=== PATIENT | female | born 1955 | race Caucasian/White ===

== ENCOUNTER 2016-07-08 19:14 | Inpatient (IN) | payer BC, SELFPAY ==
[~2016-07-08] VITALS: Ht 165.1 cm; Wt 84.8 kg
[2016-07-08] MEDS: CETIRIZINE (ZyrTEC) 10 MG TAB PO SCH (02:00)
[2016-07-08] MEDS ORDERED: MELO15TA4 PO (20:06)
[2016-07-08] MEDS ORDERED: ALLE10TA PO (20:06)
[2016-07-08] MEDS ORDERED: MUCI600T34 PO (20:06)
[2016-07-08] MEDS ORDERED: LEVO112T2 PO (20:06)
[2016-07-08] MEDS ORDERED: BISO10TA3 PO (20:06)
[2016-07-08] MEDS ORDERED: RANI1TAB6 PO (20:06)
[2016-07-08] MEDS ORDERED: AZOR5TAB4 PO (20:06)
[2016-07-08] MEDS ORDERED: METH2.5TA PO (20:06)
[2016-07-08] MEDS ORDERED: MORPHINE 4 MG/ML 1ML SYRINGE IV ONE (20:45)
[2016-07-08] MEDS ORDERED: ONDANSETRON 4MG/2ML VIAL (J2405) As Ordered ONE (20:50)
[2016-07-08] MEDS ORDERED: ONDANSETRON 4MG/2ML VIAL (J2405) IV ONE (21:00)
[2016-07-08] MEDS ORDERED: CETI10TA PO (21:58)
[2016-07-08 22:00] LABS: MEAN CORPUSCULAR HEMOGLOBIN 32.2 pg (27.0-33.0); MEAN CORPUSCULAR VOLUME 94.7 fl (80.0-96.0); RED CELL DISTRIBUTION WIDTH 13.6 % (11.5-14.5); WHITE BLOOD COUNT 10.3 K/mm3 (4.0-10.0)
[2016-07-08] MEDS ORDERED: ARTI99.0 OU (22:01)
[2016-07-08] MEDS ORDERED: FOLI1TAB2 PO (22:01)
[2016-07-08 22:26] LABS: ANION GAP 7 MEQ/L (8-16); BLOOD UREA NITROGEN 14 MG/DL (7-18); CALCIUM LEVEL 8.7 MG/DL (8.8-10.2); CARBON DIOXIDE LEVEL 27 MEQ/L (21-32); CHLORIDE LEVEL 96 MEQ/L (98-107); CREATININE FOR GFR 0.69 MG/DL (0.55-1.02); GLOMERULAR FILTRATION RATE > 60.0 (>45); GLUCOSE, FASTING 141 MG/DL (80-110); POTASSIUM SERUM 4.1 MEQ/L (3.5-5.1); SODIUM LEVEL 130 MEQ/L (136-145)
[2016-07-08] MEDS ORDERED: amLODIPine 5 MG TAB PO ONE (23:15)
[2016-07-08] MEDS ORDERED: cloNIDine 0.2 MG TAB PO ONE (23:15)
[2016-07-08] MEDS ORDERED: guaiFENesin ER 600 MG TAB PO PRN (23:30)
[2016-07-08] MEDS ORDERED: PROMETHAZINE INJ 25 MG/ML VIAL (J2550) IV ONE (23:30)
--- NOTE | 2016-07-09 00:30 | CR.PDOC ---
[facility] Consultation Consultation DATE OF CONSULTATION: July 08, 2016 at 20:28 PRIMARY CARE PHYSICIAN: [place] REFERRING PROVIDER: Dr. Abel ATTENDING PHYSICIAN: Dr. Lopez REASON FOR CONSULTATION/CHIEF COMPLAINT: Management of medical problems HISTORY OF PRESENT ILLNESS: Ms. Lundberg is a 61-year-old female who presents to [facility] emergency Department with right leg pain. Patient is a resident of [place], but is visiting her son who is in the . She was making chocolate chip cookies with her granddaughter when she was walking back from the refrigerator and slipped. Her right leg went out from under her and she fell to the ground. Denies hitting her head or loss of consciousness. Denies tongue maceration. Had one episode of nonbloody diarrhea. No urinary incontinence. Admits to nausea. Has had 4 episodes of nonbloody emesis. Admits to some diaphoresis and non-teeth rattling chills. Admits to tinnitus and left ankle swelling. Also admits to vague, diffuse abdominal pain. Besides positive review of systems listed above all other review of systems are negative. Hospitalist service was consulted to manage medical problems. Primary attending is orthopedics. Hospitalist independent marketing consultant will be Dr. Moran. ALLERGIES: Please see below. HOME MEDICATIONS: Please see below. PAST MEDICAL HISTORY: 1. Hypothyroidism. 2. Resistant hypertension. 3. Rheumatoid arthritis. 4. Allergies. 5. Cataracts. PAST SURGICAL HISTORY: 1. Colonoscopy. 2. Upper endoscopy. 3. Tubal ligation. 4. Uterine laparoscopy for a lysis of adhesions. 5. Left wrist surgery. FAMILY HISTORY: Father: in 2002, multiple sclerosis Mother: Alive, 80 years old, history of aortic aneurysm Siblings: Brother - diabetes SOCIAL HISTORY: Marital status and/or living arrangements: , lives with , mother, and mentally retarded son Tobacco use: Denies ETOH: Denies Illicit drug use: Denies IV drug use: Denies Other relevant social factors: Domestic travel only, denies environmental exposures REVIEW OF SYSTEMS: CONSTITUTIONAL: Admits to chills; denies fever, night sweats. HEENT: Admits to tinnitus; denies headache, blurry vision, diplopia, vision loss. CARDIOVASCULAR: Denies chest pain. RESPIRATORY: Admits to diaphoresis; denies orthopnea, PND, shortness of breath. GENITOURINARY: Denies urinary frequency, urinary urgency, dysuria, hematuria. MUSCULOSKELETAL: Admits to chronic joint pain secondary to rheumatoid arthritis. GASTROINTESTINAL: Admits to nausea, vomiting, abdominal pain. SKIN: Denies skin rashes, lesions. NEUROLOGICAL: Denies numbness, tingling. HEMATOLOGIC/LYMPHATIC: Denies abnormal bleeding, bruising. ALLERGIC/IMMUNOLOGIC: Admits to allergies seasonal. PHYSICAL EXAMINATION: VITAL SIGNS: Please see below. GENERAL APPEARANCE: Well-nourished, well-developed female who appears stated age and in no apparent distress. HEENT: Atraumatic, normocephalic, PERRL, EOMI, oral mucosa appears slightly dry , nasal septum appears midline, nasal cannula in place, nares are patent. RESPIRATORY: Clear to auscultation bilaterally, adequate inspiratory and expiratory airway excursion, no wheeze, rhonchi, crackles. CARDIOVASCULAR: Regular rate and rhythm, normal S1 and S2, no murmur, rub, click appreciated. ABDOMEN: Round, soft, mildly tender to palpation, diminished bowel sounds appreciated. EXTREMITIES: Peripheral pulses appreciated bilaterally in upper and lower extremities symmetrical, +2/4, no edema appreciated. NEUROLOGICAL: Cranial nerves II through XII appear grossly intact. PSYCHIATRIC: Mood and affect appear appropriate. LABORATORY DATA: Please see below. ASSESSMENT/PLAN: 1. Preoperative optimization: Blood pressure will be optimized with hydralazine , Norvasc, and clonidine. No cardiac history. METS 4+. EKG shows normal sinus rhythm with T-wave abnormalities in V1-3. Prior EKG on 02/25/2010 does not show T-wave abnormalities. Obtaining cardiac marker. Patient is asymptomatic. TEDs and sequentials for DVT prophylaxis. Medically optimized and may proceed to surgery. 2. Hypertension: Started Norvasc, clonidine, and hydralazine to optimize patient 's blood pressure. Status post orthopedic surgery could consider resuming patient's home blood pressure medication. 3. Hyponatremia: Likely secondary to patient's home blood pressure medication. Monitor with daily BMP. Obtaining serum and urine osmolality and random urine sodium. 4. Hypothyroidism: Continue patient's home medication of Synthroid. 5. Rheumatoid arthritis: Patient has not been on prednisone for at least a year. Patient reports that her methotrexate is only taken on Wednesday and Humira on Wednesday. Could consider resuming at that time. 6. Allergies: Continue home medication regimen. 7. Tibial fracture: Primary care teams orthopedics. Defer antibiotic preference to orthopedics at this time. Vital Signs/I&O Vital Signs Date Time Temp Pulse Resp B/P (MAP) Pulse Ox O2 Delivery O2 Flow Rate FiO2 07/08/16 22:41 97.0 60 18 187/90 (122) 100 Nasal Cannula 2.0 Laboratory Data Labs 24H Laboratory Tests 2 07/08/16 21:31: Anion Gap 7L, Glomerular Filtration Rate > 60.0, Blood Urea Nitrogen 14, Creatinine 0.69, Sodium Level 130L, Potassium Level 4.1, Chloride Level 96L, Carbon Dioxide Level 27, Calcium Level 8.7L, Thyroid Stimulating Hormone (TSH) 0.864 CBC/BMP Laboratory Tests 07/08/16 21:31 Calcium Level 8.7 L 07/08/16 21:32 Red Blood Count 3.84 L, Mean Corpuscular Volume 94.7, Mean Corpuscular Hemoglobin 32.2, Mean Corpuscular Hemoglobin Concent 34.0, Red Cell Distribution Width 13.6 Allergies Coded Allergies: Nitrofurantoin (Verified Allergy, Unknown, 07/08/16) Penicillins (Verified Allergy, Unknown, 07/08/16) Sulfa Antibiotics (Verified Allergy, Unknown, 07/08/16) Home Medications Scheduled (Gus 5-40 mg) 1 Tab Tab, 1 TAB PO QPM, (Reported) (Bisoprolol Fumarate/[place] 10-6.25 mg) 1 Tab Tab, 1 TAB PO DAILY, (Reported) Artificial Tears (Artificial Tears) 1.4 % Sepideh, 0 OU DAILY, (Reported) Cetirizine HCl (Cetirizine HCl) 10 Mg Tab, 10 MG PO QPM, (Reported) Folic Acid (Folic Acid) 1 Mg Tab, 1 MG PO DAILY, (Reported) Levothyroxine Sodium (Synthroid) 112 Mcg Tab, 112 MCG PO QAM, (Reported) Meloxicam (Meloxicam) 15 Mg Tab, 15 MG PO QPM, (Reported) Methotrexate (Methotrexate) 2.5 Mg Tab, 7.5 MG PO ASDIRECTED, (Reported) Weekly on Wednesday - Takes 6 tabs (2.5 mg) Ranitidine HCl (Ranitidine [address]) 150 Mg Tab, 1 TAB PO DAILY, (Reported ) Scheduled PRN Guaifenesin (Mucinex) 600 Mg Tab, 600 MG PO BID PRN for CONGESTION, (Reported) ISABEL GORMAN July 09, 2016 00:28 JEFFRY LOPEZ MD July 10, 2016 01:01
--- NOTE | 2016-07-09 00:38 | HPE ---
DATE OF ADMISSION: 07/08/2016 CHIEF COMPLAINT: Right ankle pain and deformity. HISTORY OF PRESENT ILLNESS: Patient was visiting her son in the area. She is originally from [facility]. Slipped and fell in the kitchen this evening shortly after eating dinner. Presented promptly to the emergency room complaining of pain and deformity isolated to the right distal leg and ankle. No other complaints. PAST MEDICAL HISTORY: Significant for: 1. Rheumatoid arthritis. 2. Hypertension. 3. Thyroid disease. PAST SURGICAL HISTORY: 1. Tubal ligation. 2. Left wrist. ALLERGIES: PENICILLIN, SULFA, and MACRODANTIN. SOCIAL HISTORY: Denies tobacco use. Denies drug or alcohol abuse. REVIEW OF SYSTEMS: No recent fevers, chills, chest pain, or shortness of breath. PHYSICAL EXAMINATION: Awake, alert, and oriented times three. Well-appearing female in no acute distress. Properly dressed. Well nourished. Head is Normocephalic, atraumatic. Extraocular muscles are intact. CARDIOVASCULAR: Regular rate and rhythm. PULMONARY: No increased work of breathing. ABDOMEN: Soft, nontender nondistended. Focused examination of her right lower extremity reveals a swelling and deformity centered at the distal one-third of the right leg with the local skin intact. The swelling is not excessive. There is no sign of a compartment syndrome. Distally she has 2+ dorsalis pedis and posterior tibialis pulse. The toes are pink, warm, well perfused with full intact sensation to light touch and less than 2 seconds capillary refill. She has intact extensor hallucis longus, flexor hallucis longus, tibialis anterior function. Ipsilateral knee and thighs grossly normal, and the foot on the right side is also grossly normal. X-rays of the right leg and the right ankle show displaced fracture of the distal one-third of the tibia with an associated fibula fracture as well. ASSESSMENT: Right distal tibia and fibular fracture, as above. PLAN: She was placed in a well-padded L-induced splint. Post splinting x-rays were reviewed. She will be admitted for pain control, monitoring. Nothing by mouth past midnight, elevating the right lower extremity, and monitoring on neurovascular status and monitoring for any sign of compartment syndrome. Additionally, I will have the internal medicine staff evaluate the patient for preoperative clearance. I have discussed with her the treatment options for this injury, which would include, more than likely, going forward with intramedullary nailing of the right leg tomorrow. All of her questions were answered, and she did sign the surgical consent in my presence. She is satisfied with the treatment plan at this time. She is much more comfortable in the splint.
[2016-07-09 00:52] LABS: OSMOLALITY URINE 501 MOSM/KG (500-800)
[2016-07-09 01:11] LABS: OSMOLALITY SERUM 278 MOSM/KG (280-301)
[2016-07-09] MEDS: **hydrALAZINE** 10 MG TAB PO SCH ×6 (02:00→20:00)
[2016-07-09 02:06] VITALS: BP 133/97
[2016-07-09] MEDS: LEVOTHYROXINE 0.112 MG TAB (112 MCG) PO SCH (05:23)
[2016-07-09 06:00] VITALS: BP 101/56
--- NOTE | 2016-07-09 06:23 | ECGEPIP ---
Stationary ECG Study [facility] Test Date: 2016-07-08 Pat Name: VIPUL HORNE Department: Room: - Gender: F Street Sweeper: ZEKE : 1955 Requested By: JEFFRY Sullivan Order Number: [id number] Reading MD: Evelin Peterson Measurements Intervals Mcroberts Rate: 62 P: 42 DE: 181 QRS: 18 QRSD: 102 T: 32 QT: 431 QTc: 438 Interpretive Statements SINUS RHYTHM ST DEVIATION AND MODERATE T-WAVE ABNORMALITY, CONSIDER ANTERIOR ISCHEMIA no prior Electronically Signed On 07-09-2016 6:23:01 EDT by Evelin Peterson
--- NOTE | 2016-07-09 07:31 | CR ---
DATE OF CONSULTATION: 07/08/2016 This is an addendum to consultation report #[id number] dictated by ULYSSES Zuniga. Please refer to that report. ADDENDUM: Preop medical clearance. The patient has no prior history of coronary artery disease, OR or congestive heart failure (CHF). She currently is in her usual state of health and is currently medically optimized. Blood pressure is improved from admission and is stable to proceed to surgery. MEGHAN
--- NOTE | 2016-07-09 07:40 | REP ---
Clinical: Trauma. Technique: AP and cross-table lateral views of the right tibia / fibula. Findings: Moderate arthritic degenerative changes at the knee. Comminuted oblique fractures of the distal tibial and fibular diaphysis noted. No subcutaneous emphysema or radiodense foreign body. Impression: Comminuted oblique fractures of the distal tibia and fibular diaphysis. Signed by Efra Albright MD 07/09/2016 07:32 A
--- NOTE | 2016-07-09 07:40 | REP ---
Clinical: Trauma. Technique: AP, lateral, bilateral oblique views of the right ankle. Findings: There is oblique minimally displaced fractures involving the distal tibial and fibular diaphyses. Overlying soft tissue swelling noted. No subcutaneous emphysema or radiodense foreign body. Moderate arthritic degenerative changes to the ankle and visualized midfoot. Impression: Oblique fractures of the distal tibial and fibular diaphyses. Signed by Efra Albright MD 07/09/2016 07:32 A
[2016-07-09] MEDS: amLODIPine 10 MG TAB PO SCH (08:20)
--- NOTE | 2016-07-09 08:39 | REP ---
Clinical: Preoperative assessment . Comparison: 03/07/2012 . Findings: The mediastinum and cardiac silhouette are stable and within normal limits for portable technique. The lung rubi are clear without acute consolidation, effusion, or pneumothorax. Skeletal structures are intact. Impression: Normal portable chest x-ray Signed by Efra Albright MD 07/09/2016 08:29 A
[2016-07-09] MEDS: POLYVINYL ALCOHOL OPHTH SOLN 15 ML(LIQUITEARS) OU SCH (09:00)
[2016-07-09] MEDS ORDERED: LEVOTHYROXINE 0.112 MG TAB (112 MCG) PO SCH (09:00)
[2016-07-09] MEDS: FOLIC ACID 1 MG TAB PO SCH (09:00)
[2016-07-09] MEDS: ONDANSETRON 4MG/2ML VIAL (J2405) IV PRN ×2 (10:55→17:32)
[2016-07-09] MEDS ORDERED: CLINDAMYCIN INJ 900MG/6ML VIAL As Ordered ONE (15:33)
--- NOTE | 2016-07-09 17:49 | IPNPDOC ---
Date Seen The patient was seen on 07/09/16. Progress Note CHIEF COMPLAINT: Right leg injury. HISTORY OF PRESENT ILLNESS: Patient is a 61 y/o female with rheumatoid arthritis who sustained a mechanical fall from standing height yesterday afternoon. Patient was visiting her son in the area. She is originally from [facility]. Presented promptly to the emergency room complaining of pain and deformity isolated to the right distal leg and ankle. No other complaints. PAST MEDICAL HISTORY: Significant for: 1. Rheumatoid arthritis. 2. Hypertension. 3. Thyroid disease. Medications: Humira, Methotrexate PAST SURGICAL HISTORY: 1. Tubal ligation. 2. Left wrist surgery. ALLERGIES: PENICILLIN, SULFA, and MACRODANTIN. SOCIAL HISTORY: Denies tobacco use. Denies drug or alcohol abuse. Lives in [place]. Here visiting her son. REVIEW OF SYSTEMS: No recent fevers, chills, chest pain, or shortness of breath. PHYSICAL EXAMINATION: Awake, alert, and oriented times three. Well-appearing female in no acute distress. Properly dressed. Well nourished. Head is Normocephalic, atraumatic. Extraocular muscles are intact. CARDIOVASCULAR: Regular rate and rhythm. PULMONARY: No increased work of breathing. ABDOMEN: Soft, nontender nondistended. Focused examination of her right lower extremity reveals a swelling and deformity centered at the distal one-third of the right leg with the local skin intact. No pain with passive stretch of the toes. There is no sign of compartment syndrome. Distally she has 2+ dorsalis pedis and posterior tibialis pulse. The toes are pink, warm, well perfused with full intact sensation to light touch and less than 2 seconds capillary refill. She has intact extensor hallucis longus, flexor hallucis longus, tibialis anterior function. Ipsilateral knee and thighs grossly normal, and the foot on the right side is also grossly normal. X-rays of the right leg and the right ankle show displaced fracture of the distal one-third of the tibia with an associated fibula fracture as well. ASSESSMENT: Right distal tibia and fibular fracture, as above. PLAN: She was placed in a well-padded L and U splint last night. She has been comfortable overnight. I counseled the patient on the risks, benefits, indications, and alternatives of operative and nonoperative treatment for her fracture and recommend closed versus open reduction and IM nail fixation. We discussed the potential increased risk for infection given her immunosupressive therapy. We discussed the risk for compartment syndrome. I also counseled the patient that I will be her operating surgeon but her follow up will be arranged and managed by the [facility] for as long as she remains in the area. Patient has expressed understanding and informed consent was obtained. She plans to remain in the area through the majority of her recovery period. All patient questions were answered. VS, I&O, 24H, Fishbone Vital Signs/I&O Vital Signs Date Time Temp Pulse Resp B/P (MAP) Pulse Ox O2 Delivery O2 Flow Rate FiO2 07/09/16 17:29 20 07/09/16 17:29 174/79 07/09/16 06:00 97.4 54 95 Room Air 07/09/16 00:07 2.0 I&O- Last 24 Hours up to 6 AM 07/09/16 06:00 Intake Total 0 ml Output Total 300 ml Balance -300 ml Laboratory Data 24H LABS Laboratory Tests 2 07/08/16 21:31: Anion Gap 7L, Glomerular Filtration Rate > 60.0, Blood Urea Nitrogen 14, Creatinine 0.69, Sodium Level 130L, Potassium Level 4.1, Chloride Level 96L, Carbon Dioxide Level 27, Calcium Level 8.7L, Thyroid Stimulating Hormone (TSH) 0.864 07/09/16 00:15: Urine Random Osmolality 501, Urine Random Sodium 153 07/09/16 00:33: Osmolality 278L, Total Creatine Kinase 244H, Creatine Kinase MB 3.0, Creatine Kinase MB Relative Index 1.22, Troponin I < 0.02 CBC/BMP Laboratory Tests 07/08/16 21:31 Calcium Level 8.7 L 07/08/16 21:32 Red Blood Count 3.84 L, Mean Corpuscular Volume 94.7, Mean Corpuscular Hemoglobin 32.2, Mean Corpuscular Hemoglobin Concent 34.0, Red Cell Distribution Width 13.6 DARYL REBOLLAR MD July 09, 2016 17:49
[2016-07-09] MEDS ORDERED: CLINDAMYCIN 900 MG/50 ML PREMIX BAG As Ordered ONE (19:00)
[2016-07-09] MEDS ORDERED: dexameTHASONE 4 MG/ML 1ML VIAL (J1100) As Ordered ONE (19:38)
[2016-07-09] MEDS ORDERED: MIDAZOLAM INJ 2 MG/2 ML VIAL (J2250) As Ordered ONE (19:38)
[2016-07-09] MEDS ORDERED: fentaNYL 100 MCG/2 ML INJECTION (J3010) As Ordered ONE (19:38)
[2016-07-09] MEDS ORDERED: HYDROmorphone HCL 2 MG/ML 1ML VIAL (J1170) As Ordered ONE (19:38)
[2016-07-09] MEDS ORDERED: PROPOFOL 200 MG/20 ML VIAL As Ordered ONE (19:38)
[2016-07-09] MEDS ORDERED: ONDANSETRON 4MG/2ML VIAL (J2405) As Ordered ONE ×2 (19:38→22:02)
[2016-07-09] MEDS ORDERED: LIDOCAINE 2% INJ 100 MG/5 ML SDV (FOR ANES.) As Ordered ONE (19:38)
[2016-07-09] MEDS ORDERED: BUPIVACAINE HCL 0.25% 30 ML VIAL As Ordered ONE (21:15)
[2016-07-09] MEDS ORDERED: PERCOCET 5MG/325MG TAB PO PRN (22:00)
[2016-07-09] MEDS ORDERED: HYDROmorphone HCL 1 MG/ML SYRINGE (J1170) IV PRN (22:00)
[2016-07-09] MEDS ORDERED: fentaNYL 100 MCG/2 ML INJECTION (J3010) IV PRN (22:00)
[2016-07-09] MEDS ORDERED: LR 1,000 ML IV SCH (22:00)
[2016-07-09] MEDS ORDERED: ONDANSETRON 4MG/2ML VIAL (J2405) IV PRN (22:00)
[2016-07-09] MEDS ORDERED: PERCOCET 5MG/325MG TAB As Ordered ONE (22:02)
[2016-07-09 22:45] VITALS: BP 184/86
[2016-07-09 23:15] VITALS: BP 159/74
[2016-07-10] VITALS (10 sets, daily range): BP systolic 132–174; BP diastolic 65–88
[2016-07-10] MEDS: CETIRIZINE (ZyrTEC) 10 MG TAB PO SCH (01:01)
[2016-07-10] MEDS: CLINDAMYCIN 600 MG in APPROPRIATE DILUENT 1 EA IV SCH ×3 (01:01→13:10)
[2016-07-10] MEDS: **hydrALAZINE** 10 MG TAB PO SCH ×4 (01:02→11:57)
[2016-07-10] MEDS: LEVOTHYROXINE 0.112 MG TAB (112 MCG) PO SCH (05:23)
[2016-07-10] MEDS: ONDANSETRON 4MG/2ML VIAL (J2405) IV PRN (05:51)
[2016-07-10 07:40] LABS: MEAN CORPUSCULAR HEMOGLOBIN 32.3 pg (27.0-33.0); MEAN CORPUSCULAR HGB CONC 34.4 g/dl (32.0-36.5); MEAN CORPUSCULAR VOLUME 93.9 fl (80.0-96.0); RED CELL DISTRIBUTION WIDTH 13.9 % (11.5-14.5); WHITE BLOOD COUNT 9.4 K/mm3 (4.0-10.0)
[2016-07-10 07:58] LABS: ANION GAP 7 MEQ/L (8-16); BLOOD UREA NITROGEN 10 MG/DL (7-18); CALCIUM LEVEL 8.4 MG/DL (8.8-10.2); CARBON DIOXIDE LEVEL 27 MEQ/L (21-32); CHLORIDE LEVEL 99 MEQ/L (98-107); CREATININE FOR GFR 0.74 MG/DL (0.55-1.02); GLOMERULAR FILTRATION RATE > 60.0 (>45); GLUCOSE, FASTING 150 MG/DL (80-110); SODIUM LEVEL 133 MEQ/L (136-145)
--- NOTE | 2016-07-10 07:58 | REP ---
Clinical: Status post fixation. Technique: Portable AP and lateral views of the right tibia / fibula. Findings: The patient is status post open reduction and fixation with intramedullary nate through the tibial shaft and associated stabilizing screws. The distal tibial shaft fracture demonstrates normal alignment and orthopedic hardware is in satisfactory position. Fracture of the distal fibula demonstrate satisfactory alignment without associated orthopedic hardware. Overlying postsurgical changes appreciated. Impression: Satisfactory open reduction and fixation with satisfactory alignment. Signed by Efra Albright MD 07/10/2016 07:49 A
--- NOTE | 2016-07-10 08:17 | REP ---
Internal fixation of the right tibia intraoperative fluoroscopic views: Multiple intraoperative fluoroscopic views are performed during internal fixation. Final films reveal an intramedullary nate with proximal and distal interlocking screws stabilizing the fracture of the tibia in satisfactory position alignment. Additionally, there is a fracture of the fibula which is also in satisfactory position alignment. Fluoroscopic exposure time is 4 minutes and 12 seconds. Intraoperative fluoroscopic images are performed with last image hold technology. These images require no additional radiation. Signed by Carlo Durán MD 07/10/2016 08:09 A
[2016-07-10] MEDS: POLYVINYL ALCOHOL OPHTH SOLN 15 ML(LIQUITEARS) OU SCH (08:40)
[2016-07-10] MEDS ORDERED: LOVE1INJ SC (08:53)
[2016-07-10] MEDS ORDERED: PERC5TAB6 PO (08:55)
[2016-07-10] MEDS ORDERED: ENOXAPARIN 40 MG/0.4 ML SYRINGE (J1650) SC SCH (09:00)
--- NOTE | 2016-07-10 09:12 | REP ---
PORTABLE RIGHT ANKLE: CLINICAL: Status post reduction. TECHNIQUE: Portable AP and lateral views of the right ankle. FINDINGS: Overlying cast material is identified. Fractures of the distal tibial and fibular diaphyses are noted with mild angulation and minimal displacement. IMPRESSION: Continued evidence for mildly angulated minimally displaced fractures of the distal tibial and fibular diaphyses. Unreviewed
--- NOTE | 2016-07-10 09:38 | RO ---
DATE OF PROCEDURE: 07/09/2016 PREPROCEDURE DIAGNOSIS: Right tibia/fibula fracture. POSTPROCEDURE DIAGNOSIS: Right tibia/fibula fracture. PROCEDURE: Right tibia intramedullary nail fixation. SURGEON: Dr. Abhinav Giles FUR COAT SEWER: GABE Degroot IMPLANTS USED: Synthes 10 x 300 mm tibial nail with 5 mm interlocking screws measuring 44 and 40 mm in length proximally and 28, 30 and 34 mm distally. ANTIBIOTICS: IV clindamycin 600 mg given within 1 hour of incision. ESTIMATED BLOOD LOSS: 200 mL. MATERIAL SENT TO LAB: None. COMPLICATIONS: None. INDICATION FOR PROCEDURE: Lauren Lundberg is a 61-year-old female with history of rheumatoid arthritis on immunosuppressive therapy including Humira and methotrexate who sustained a mechanical fall from standing height resulting in right distal third tibial and fibular shaft fractures. Patient was admitted to the hospital overnight. After discussion with the patient of the risks, benefits, indications and alternatives of operative versus nonoperative management, patient elected to proceed with right tibia intramedullary nail fixation. Informed consent was obtained. I counseled the patient that I will be her operating surgeon. Her followup will likely be done by the [facility]. Patient expressed understanding of this arrangement and elected to proceed with me as her operating surgeon. INTRAOPERATIVE FINDINGS: There is a distal third tibia and fibula fracture with anatomic reduction, gnosticist of length, alignment and rotation after fixation. DESCRIPTION OF PROCEDURE: The patient was positively identified in the preop holding area where the surgical site was marked. She was brought to the operating room where she was placed under general endotracheal anesthesia. She was prepped and draped in the usual sterile fashion. SCD was placed on the contralateral extremity for DVT prophylaxis. A final time out was performed. I made a 4 cm incision just medial to the midline of the patella and dissected through skin and subcutaneous tissue and identified the medial border of the patellar tendon and the medial retinaculum. I made a 2 cm arthrotomy and introduced my 3.2 mm guidewire. I placed a guide pin just medial to the lateral tibial spine for a start point, confirmed on AP and lateral fluoroscopy adequate placement of the guide pin and then drilled the guide pin to adequate depth, followed by the opening reamer. After opening reamer was drilled, I then introduced the guide wire. I obtained reduction of the fracture using a pointed Durán clamp through small stab incisions and then passed the guidewire until it was center-center on the ankle at the level of the physeal scar. I then measured the depth of the guide pin and elected to implant a 300 mm length nail. This was followed by sequential reaming to 11 mm followed by placement of a 10 mm x 300 mm nail. The reduction was maintained after placement of the nail. I then used the standard interlocking guide proximally to place two orthogonal proximal interlocking screws where adequate placement was confirmed under fluoroscopy. Then I moved distally and through a small stab incisions, placed 2 A to P and 1 Medial to lateral distal interlocking screws using standard perfect mary's igloo technique. After all interlocking screws were placed, confirmed anatomic reduction of the fracture using fluoroscopy. Final fluoroscopic images were taken. I then thoroughly irrigated the wounds with normal saline and closed in layers. The retinaculum was closed with #0 Vicryl, subcutaneous tissue closed with #2-0 Vicryl and skin was closed with qi for the anterior knee incision. All the incisions for interlocking screw placement and the accessory incision for reduction clamp were all irrigated with normal saline and closed with qi. Sterile dressing was applied. This ended the procedure. I was present and scrubbed in for all critical portions of the case. POSTOPERATIVE PLAN: Patient will be toe-touch weightbearing to the right lower extremity. She will return to the floor for close monitoring and 24 hours of postoperative antibiotics. She will discharge to home once she is cleared by physical therapy and pain is controlled on oral medications. MEGHAN
[2016-07-10] MEDS: amLODIPine 10 MG TAB PO SCH (10:14)
[2016-07-10] MEDS: FOLIC ACID 1 MG TAB PO SCH (10:14)
--- NOTE | 2016-07-13 20:30 | DSES ---
DATE OF ADMISSION: 07/08/2016 DATE OF DISCHARGE: 07/10/2016 ATTENDING PHYSICIAN: Dr. Kirit Abel and Dr. Abhinav Giles. ADMISSION DIAGNOSIS: Right displaced distal one-third tibia and fibular fracture. OTHER DIAGNOSES: Rheumatoid arthritis, hypertension, hypothyroidism. DISCHARGE DIAGNOSIS: Displaced right distal one-third tibia and fibular fracture status post right tibia intramedullary (IM) fixation. OPERATION PERFORMED: Right tibial IM fixation. HISTORY: This is a pleasant 61-year-old female patient who sustained a mechanical fall from standing height and was noted to have a deformity of her right ankle. She was seen at the emergency room and noted to have a deformity of the right ankle and leg. She was seen by Dr. Abel in the emergency room and admitted inpatient for elevation, medical optimization, rest and ultimately consented her for a right tibia IM nail fixation. Ultimately she was seen by Dr. Giles that performed the right tibia IM nail fixation. HOSPITAL COURSE: The patient was admitted on 07/08/2016, where she underwent medical optimization and elevation of the leg to prevent edema. Ultimately she underwent a right tibia IM fixation by Dr. Giles on 07/09/2016. Procedure was well tolerated. There was no complications. On day of discharge she was doing well. She will be touchdown weightbearing only on the right lower extremity. She will use Lovenox for deep venous thrombosis (DVT) precautions. She will followup in our office in 7-10 days for surgical followup. She will use oral pain medications for pain control. She will resume her preoperative medications and diet. She was given instructions to include activity modifications and limitations, particularly the importance of toe touch weightbearing only on the right lower extremity. Please refer to the medical record for further details.
== END 2016-07-10 16:55 | disposition home or self-care (01) | DRG 313 ==
LOC: EDBD 19:14 → EDUNIT# 19:14 → M ED 20:28 → M ED INP 22:20 → M MS5PR 07-09 01:49 → M PED 07-09 22:37
PROC: 0QSG06Z Reposition Right Tibia with Intramedullary Internal Fixation Device, Open Approach (ICD-10-PCS; principal; 2016-07-09 19:15)
DX: S82.231A Displaced oblique fracture of shaft of right tibia, initial encounter for closed fracture (principal); E87.1 Hypo-osmolality and hyponatremia; I10 Essential (primary) hypertension; H26.9 Unspecified cataract; M06.9 Rheumatoid arthritis, unspecified; E03.9 Hypothyroidism, unspecified; J30.9 Allergic rhinitis, unspecified; Z98.51 Tubal ligation status; Z88.0 Allergy status to penicillin; Z88.2 Allergy status to sulfonamides; Z88.8 Allergy status to other drugs, medicaments and biological substances; Z83.3 Family history of diabetes mellitus; Z82.8 Family history of other disabilities and chronic diseases leading to disablement, not elsewhere classified; Z82.49 Family history of ischemic heart disease and other diseases of the circulatory system; W01.0XXA Fall on same level from slipping, tripping and stumbling without subsequent striking against object, initial encounter; Y92.010 Kitchen of single-family (private) house as the place of occurrence of the external cause; Y93.01 Activity, walking, marching and hiking; Y99.9 Unspecified external cause status; S82.431A Displaced oblique fracture of shaft of right fibula, initial encounter for closed fracture

== ENCOUNTER → 2016-08-20 | Outpatient (REF) | payer MEDICAID ==
[~2016-08-20] MED LIST: ALLE10TA PO; ARTI99.0 OU; AZOR5TAB4 PO; BISO10TA3 PO; CALCIUM PO; CETI10TA PO; FOLI1TAB4 PO; HUMI40KI SC; LEVO112T2 PO; LOSA50TA20 PO; LOVE1INJ SC; MAG PO; MELO15TA4 PO; METH2.5TA PO; MUCI600T37 PO; NORV5TAB PO; PERC5TAB12 PO; RANI1TAB6 PO; TYLE500T78 PO; VIT D PO
[2016-08-20 12:45] LABS: ALKALINE PHOSPHATASE 146 U/L (45-117); ALT/SGPT 22 U/L (12-78); ANION GAP 6 MEQ/L (8-16); AST/SGOT 18 U/L (15-37); BILIRUBIN,TOTAL 0.5 MG/DL (0.2-1.0); BLOOD UREA NITROGEN 7 MG/DL (7-18); CALCIUM LEVEL 9.5 MG/DL (8.8-10.2); CARBON DIOXIDE LEVEL 31 MEQ/L (21-32); CHLORIDE LEVEL 97 MEQ/L (98-107); GLOMERULAR FILTRATION RATE > 60.0 (>45); GLUCOSE, FASTING 113 MG/DL (80-110); POTASSIUM SERUM 4.1 MEQ/L (3.5-5.1); SODIUM LEVEL 134 MEQ/L (136-145)
== END ==
LOC: M SFHCADAM 09:14
PROVIDERS: ATTEND Family Medicine
DX: M06.9 Rheumatoid arthritis, unspecified (principal)

== ENCOUNTER → 2016-10-05 | Outpatient (REF) | payer MEDICAID, OTHER ==
[2016-10-05 20:52] LABS: BASO # 0.1 K/mm3 (0.0-0.2); EOS # 0.4 K/mm3 (0.0-0.50); EOS % 6.3 % (0.0-3.0); LARGE UNSTAINED CELL # 0.2 K/mm3 (0.0-0.4); LYMPH # 2.1 K/mm3 (1.5-4.5); LYMPH % 27.5 % (24.0-44.0); MEAN CORPUSCULAR HGB CONC 33.2 g/dl (32.0-36.5); MEAN CORPUSCULAR VOLUME 96.5 fl (80.0-96.0); MONO # 0.7 K/mm3 (0.0-0.8); MONO % 10.1 % (0.0-5.0); NEUTROPHILS # 3.5 K/mm3 (1.8-7.7); NEUTROPHILS % 52.1 % (36.0-66.0); PLATELET COUNT, AUTOMATED 396 k/mm3 (150-450); RED CELL DISTRIBUTION WIDTH 13.5 % (11.5-14.5); WHITE BLOOD COUNT 6.8 K/mm3 (4.0-10.0)
[2016-10-05 21:05] LABS: ALBUMIN 4.3 GM/DL (3.2-5.2); ALBUMIN/GLOBULIN RATIO 1.08 (1.00-1.93); ALKALINE PHOSPHATASE 150 U/L (45-117); ALT/SGPT 23 U/L (12-78); ANION GAP 7 MEQ/L (8-16); AST/SGOT 15 U/L (15-37); BILIRUBIN,TOTAL 0.2 MG/DL (0.2-1.0); BLOOD UREA NITROGEN 14 MG/DL (7-18); CALCIUM LEVEL 9.9 MG/DL (8.8-10.2); CARBON DIOXIDE LEVEL 29 MEQ/L (21-32); CHLORIDE LEVEL 100 MEQ/L (98-107); CREATININE FOR GFR 0.65 MG/DL (0.55-1.02); GLOMERULAR FILTRATION RATE > 60.0 (>45); GLUCOSE, FASTING 88 MG/DL (80-110); POTASSIUM SERUM 4.4 MEQ/L (3.5-5.1); SODIUM LEVEL 136 MEQ/L (136-145); TOTAL PROTEIN 8.3 GM/DL (6.4-8.2)
== END ==
LOC: M SFHCADAM 13:50
PROVIDERS: ATTEND Family Medicine
DX: Z01.810 Encounter for preprocedural cardiovascular examination (principal); I10 Essential (primary) hypertension

== ENCOUNTER 2016-10-13 08:22 | Day surgery (SDC) | payer OTHER ==
[~2016-10-13] VITALS: Ht 165.1 cm; Wt 79.4 kg
[~2016-10-13 08:22] MED LIST changes: +BSS with VANC/TOB/EPI for EYE CASES IR ONE; +CYCLOPENTOLATE 2% OPHTH SOLN 2ML BTL OD ONE; +HEALON DUET (HEALON 10MG/ML 0.55ML & HEALON ENDOCOAT 30MG/ML 0.85ML) As Ordered ONE; -HUMI40KI SC; +LIDOCAINE 1% SDV 5 ML VIAL As Ordered ONE; +LIDOCAINE 3.5 % 1ML OPHTH TOPICAL GEL OU ONE; -LOSA50TA20 PO; +MOXIFLOXACIN IN BSS 0.25MG/0.25ML INTRACAMERAL INJ (OR EYE ONLY)(J2280) As Ordered ONE; -NORV5TAB PO; +OFLOXACIN 0.3 % (OCUFLOX) OPTH SOL 5ML OD ONE; +PHENYLEPHRINE 2.5% OPHTH SOL 2ML OD ONE; +POVIDONE-IODINE 5% OPHTH PREP SOL 30ML As Ordered ONE; +TRIAMCINOLONE PRES FR 40 MG/ML 1ML(TRIESENCE)(OR EYE ONLY)(J3300 PER 1MG) As Ordered ONE; +TROPICAMIDE 1% OPHTH SOLN 2ML OD ONE
[2016-10-13] MEDS ORDERED: LR 1,000 ML IV ONE (10:00)
[2016-10-13] MEDS ORDERED: NORV5TAB PO (10:28)
[2016-10-13] MEDS ORDERED: HUMI40KI SC (10:28)
[2016-10-13] MEDS ORDERED: MIDAZOLAM INJ 2 MG/2 ML VIAL (J2250) As Ordered ONE (11:41)
[2016-10-13] MEDS ORDERED: fentaNYL 100 MCG/2 ML INJECTION (J3010) As Ordered ONE (11:41)
[2016-10-13] MEDS ORDERED: LIDOCAINE 4% INJ 5 ML AMP OU ONE (12:08)
[2016-10-13 12:50] VITALS: BP 179/85
--- NOTE | 2016-10-15 07:12 | RO ---
DATE OF PROCEDURE: 10/13/2016 PREOPERATIVE DIAGNOSES: Cataract right eye. 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 POSTOPERATIVE DIAGNOSES: Cataract right eye. 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 PROCEDURE: Phacoemulsification with intraocular lens (IOL) implantation along with lysis of iridolenticular adhesions and placement of a Malyugin ring 7 mm. SURGEON: Vielka Rosenberg MD COAL INSPECTOR: None. ANESTHESIA: Local, monitored anesthesia care (MAC). COMPLICATIONS: None. DESCRIPTION OF PROCEDURE: Patient was brought to the operating room and laid in supine position. The right eye was prepped and draped in a sterile fashion for ophthalmic surgery, and a lid speculum was placed. Temporal clear corneal incision was made, and EndoCoat was injected into the anterior chamber. There were diffuse iridolenticular adhesions, which were then lysed with the help of the Healon cannula and a Sinskey hook. After this, a temporal clear corneal incision was made with a 2.5 mm keratome and a Malyugin ring 7 mm was placed to dilate the pupil. Capsulorrhexis was then done followed by hydrodissection and phacoemulsification in a [id number] method within the capsular bag. Excess cortical material was then aspirated using irrigation and aspiration cannula and Healon injected into the capsular bag. Intraocular lens was then placed, Malyugin removed, excess viscoelastic aspirated. Intracameral moxifloxacin injection was given, and sub-Tenon Kenalog injection was given at the end. Patient was returned to the recovery room in stable condition after removing the lid speculum. Edited: [facility] 10/15/2016 [id number]
== END 2016-10-13 13:00 | disposition home or self-care (01) ==
LOC: M SDC 08:22
PROVIDERS: ATTEND Ophthalmology
DX: H26.9 Unspecified cataract (principal); H57.03 Miosis; H21.509 Unspecified adhesions of iris and ciliary body, unspecified eye; I10 Essential (primary) hypertension; E03.9 Hypothyroidism, unspecified; K21.9 Gastro-esophageal reflux disease without esophagitis; M06.9 Rheumatoid arthritis, unspecified; Z88.0 Allergy status to penicillin; Z88.1 Allergy status to other antibiotic agents; Z88.2 Allergy status to sulfonamides; Z88.6 Allergy status to analgesic agent; Z79.899 Other long term (current) drug therapy; Z87.81 Personal history of (healed) traumatic fracture; Z78.0 Asymptomatic menopausal state; Z98.51 Tubal ligation status

== ENCOUNTER 2016-11-02 11:51 | Day surgery (SDC) | payer OTHER ==
[~2016-11-02] VITALS: Ht 165.1 cm; Wt 79.4 kg
[~2016-11-02 11:51] MED LIST changes: -CYCLOPENTOLATE 2% OPHTH SOLN 2ML BTL OD ONE; +CYCLOPENTOLATE 2% OPHTH SOLN 2ML BTL OS ONE; +HUMI40KI SC; +MIDAZOLAM INJ 2 MG/2 ML VIAL (J2250) As Ordered ONE; +NORV5TAB PO; -OFLOXACIN 0.3 % (OCUFLOX) OPTH SOL 5ML OD ONE; +OFLOXACIN 0.3 % (OCUFLOX) OPTH SOL 5ML OS ONE; -PHENYLEPHRINE 2.5% OPHTH SOL 2ML OD ONE; +PHENYLEPHRINE 2.5% OPHTH SOL 2ML OS ONE; -TROPICAMIDE 1% OPHTH SOLN 2ML OD ONE; +TROPICAMIDE 1% OPHTH SOLN 2ML OS ONE; +fentaNYL 100 MCG/2 ML INJECTION (J3010) As Ordered ONE
[2016-11-02] MEDS ORDERED: D5W/0.2% SODIUM CHLORIDE 250 ML IV ONE (12:15)
[2016-11-02] MEDS ORDERED: LOSA50TA20 PO (12:33)
[2016-11-02] MEDS ORDERED: LIDOCAINE 2% W/EPIN INJ 20ML **PRES FREE As Ordered ONE (12:37)
[2016-11-02] MEDS ORDERED: TRIAMCINOLONE PRES FR 40 MG/ML 1ML(TRIESENCE)(OR EYE ONLY)(J3300 PER 1MG) As Ordered ONE (12:37)
[2016-11-02] MEDS ORDERED: HEALON DUET (HEALON 10MG/ML 0.55ML & HEALON ENDOCOAT 30MG/ML 0.85ML) As Ordered ONE ×2 (12:49→13:10)
[2016-11-02] MEDS: MOXIFLOXACIN IN BSS 0.25MG/0.25ML INTRACAMERAL INJ (OR EYE ONLY)(J2280) As Ordered ONE ×2 (12:59→13:00)
[2016-11-02] MEDS ORDERED: ACETYLCHOLINE OPHTH SOLN 1% 2ML (MIOCHOL-E) As Ordered ONE (13:04)
[2016-11-02] MEDS ORDERED: ONDANSETRON 4MG/2ML VIAL (J2405) As Ordered ONE (13:42)
[2016-11-02] MEDS ORDERED: ONDANSETRON 4MG/2ML VIAL (J2405) IV PRN (14:00)
[2016-11-02 14:10] VITALS: BP 178/84
--- NOTE | 2016-11-02 18:33 | RO ---
DATE OF PROCEDURE: 11/02/2016 PREPROCEDURE DIAGNOSIS: Cataract of right eye, miosis right eye and iridolenticular adhesions right eye. POSTPROCEDURE DIAGNOSIS: Cataract of right eye, miosis right eye and iridolenticular adhesions right eye. PROCEDURE: SURGEON: Vielka Rosenberg MD [employer] ARCHITECT: None. ANESTHESIA: COMPLICATIONS: None. DESCRIPTION OF PROCEDURE: The patient was brought to the operating room and laid in supine position. A eye was prepped and draped in a sterile fashion for ophthalmic surgery and a lid speculum was placed. A sideport incision was made and EndoCoat was injected into the anterior chamber. The patient's anterior chamber was very shallow. Temporal clear corneal incision was made with a 2.5 mm Keratome and Healon was placed into the anterior chamber and with the help of the Healon we attempted to lyse the iridolenticular adhesion. Because of the chamber being very shallow and poor approach and very deep set eyes, it was extremely difficult to manipulate any instruments within the eye. After the lyses of the adhesions, Malyugin ring was inserted in the eye with some difficulty. Capsulorrhexis was then done again with lots of difficulty because of the patient's inability to look downwards and the deep set eyes and extremely shallow chamber. Hydrodissection was then done, followed by phacoemulsification in a divide and conquer method. Even before the beginning of the phacoemulsification, some zonular dialysis were noted about 3-o'clock hours inferiorly between 6-o'clock and 9-o'clock. After the phacoemulsification was carried out, careful aspiration of the cortical material was done followed by injection of the Healon into the capsular bag and placement of the intraocular lens. Miochol was then used, wound was hydrated, intracameral moxifloxacin was given and sub-tenon injections of triamcinolone was given. The case was discussed in detail with the patient. Speculum removed, and the patient was returned to the recovery room in stable condition.
== END 2016-11-02 14:50 | disposition home or self-care (01) ==
LOC: M SDC 11:51
PROVIDERS: ATTEND Ophthalmology
DX: H26.9 Unspecified cataract (principal); H57.03 Miosis; H21.509 Unspecified adhesions of iris and ciliary body, unspecified eye; E03.9 Hypothyroidism, unspecified; I10 Essential (primary) hypertension; M06.9 Rheumatoid arthritis, unspecified; K21.9 Gastro-esophageal reflux disease without esophagitis; Z88.0 Allergy status to penicillin; Z88.1 Allergy status to other antibiotic agents; Z88.2 Allergy status to sulfonamides; Z79.899 Other long term (current) drug therapy